=== PATIENT | male | born 2000 | race Hispanic/Latino ===

== ENCOUNTER 2022-05-20 11:10 | Emergency (ER) | payer BC ==
[~2022-05-20] VITALS: Ht 172.7 cm; Wt 100.0 kg
[~2022-05-20 11:10] MED LIST: MULTIVITAMI9 PO; ULTRAM50 MG PO
[2022-05-20 11:21] VITALS: BP 132/97
[2022-05-20 11:46] VITALS: BP 104/59
[2022-05-20 12:01] VITALS: BP 110/70
[2022-05-20 12:16] VITALS: BP 113/64
[2022-05-20] MEDS ORDERED: KEFLEX500 MG PO (12:25)
[2022-05-20 12:33] VITALS: BP 41/22
[2022-05-20 12:34] VITALS: BP 113/64
== END 2022-05-20 12:39 | disposition home or self-care (01) | DRG 605 ==
LOC: ED 11:10
PROC: 0HQGXZZ Repair Left Hand Skin, External Approach (ICD-10-PCS; principal; 2022-05-20)
DX: S61.012A Laceration without foreign body of left thumb without damage to nail, initial encounter (principal); W45.8XXA Other foreign body or object entering through skin, initial encounter